=== PATIENT | male | born 1985 | race African-American/Black ===

== ENCOUNTER 2018-08-08 05:26 | Emergency (ER) | payer MEDICAID ==
[~2018-08-08] VITALS: Ht 172.7 cm; Wt 86.4 kg
[2018-08-08 06:23] VITALS: BP 143/83
[2018-08-08] MEDS ORDERED: LIDOcaine 1.5% w/epinephrine 1:200,000 5ml ampul IJ ONE (06:35)
[2018-08-08] MEDS ORDERED: LIDOcaine 1% w/EPI 1:100,000 30ml vial (MDV) IJ ONE (06:40)
== END 2018-08-08 08:22 | disposition home or self-care (01) ==
LOC: ER 05:27
DX: S01.511A Laceration without foreign body of lip, initial encounter (principal); F12.90 Cannabis use, unspecified, uncomplicated; F15.90 Other stimulant use, unspecified, uncomplicated; F17.200 Nicotine dependence, unspecified, uncomplicated; Z59.0 Homelessness; Y04.0XXA Assault by unarmed brawl or fight, initial encounter; Y93.89 Activity, other specified; Y92.89 Other specified places as the place of occurrence of the external cause; Y99.9 Unspecified external cause status
CPT/HCPCS: 12011; 99283; J3490

== ENCOUNTER 2019-08-20 10:09 | Emergency (ER) | payer MEDICAID ==
[~2019-08-20] VITALS: Ht 172.7 cm; Wt 89.5 kg
[~2019-08-20 10:09] MED LIST: NEOM1OIN8 TOP
--- NOTE | 2019-08-20 10:50 | NUR ---
PT REPORTS USING [facility] LAST NIGHT
--- NOTE | 2019-08-20 10:52 | NUR ---
PT ITCHING AT THE BACK OF HIS NECK, REFUSING TO STOP.
[2019-08-20] MEDS ORDERED: LORazepam 1 MG tablet PO ONE (11:10)
[2019-08-20] MEDS ORDERED: mupirocin 2% ointment 22GM TP ONE (12:15)
[2019-08-20 12:33] VITALS: BP 123/85
== END 2019-08-20 12:35 | disposition home or self-care (01) ==
LOC: ER 10:10
DX: F22 Delusional disorders (principal); B88.8 Other specified infestations; F12.90 Cannabis use, unspecified, uncomplicated; F15.90 Other stimulant use, unspecified, uncomplicated; Z59.0 Homelessness
CPT/HCPCS: 99283

== ENCOUNTER 2019-10-04 12:31 | Emergency (ER) | payer MEDICAID ==
[~2019-10-04] VITALS: Ht 177.8 cm; Wt 70.0 kg
[2019-10-04 12:43] VITALS: BP 150/92
[2019-10-04] MEDS ORDERED: PERM60CR19 TP (13:56)
== END 2019-10-04 14:20 | disposition home or self-care (01) ==
LOC: ER 12:31
DX: B86 Scabies (principal); F15.10 Other stimulant abuse, uncomplicated; F12.90 Cannabis use, unspecified, uncomplicated; Z59.0 Homelessness
CPT/HCPCS: 99283

== ENCOUNTER 2019-10-09 05:54 | Emergency (ER) | payer MEDICAID ==
[~2019-10-09] VITALS: Ht 172.7 cm; Wt 75.0 kg
[~2019-10-09 05:54] MED LIST changes: +PERM60CR19 TP
[2019-10-09 06:00] VITALS: BP 170/119
[2019-10-09] MEDS ORDERED: PERM60CR19 TP (06:27)
[2019-10-09] MEDS ORDERED: CEPH500C5 PO (06:27)
== END 2019-10-09 06:37 | disposition home or self-care (01) ==
LOC: ER 05:55
DX: L53.8 Other specified erythematous conditions (principal); B86 Scabies; F15.90 Other stimulant use, unspecified, uncomplicated; Z59.0 Homelessness; F12.90 Cannabis use, unspecified, uncomplicated
CPT/HCPCS: 99283

== ENCOUNTER 2019-10-10 07:52 | Emergency (ER) | payer MEDICAID ==
[~2019-10-10] VITALS: Ht 172.7 cm; Wt 80.0 kg
[~2019-10-10 07:52] MED LIST changes: +CEPH500C5 PO
[2019-10-10 07:58] VITALS: BP 106/45
[2019-10-10] MEDS ORDERED: Permethrin Cream 60gm TP ONE (08:05)
== END 2019-10-10 08:22 | disposition home or self-care (01) ==
LOC: ER 07:52
DX: B86 Scabies (principal); F10.99 Alcohol use, unspecified with unspecified alcohol-induced disorder; F12.90 Cannabis use, unspecified, uncomplicated; F15.90 Other stimulant use, unspecified, uncomplicated; Z79.899 Other long term (current) drug therapy; Z59.0 Homelessness; Y90.9 Presence of alcohol in blood, level not specified
CPT/HCPCS: 99282

== ENCOUNTER 2019-11-25 05:36 | Emergency (ER) | payer MEDICAID ==
[~2019-11-25] VITALS: Ht 177.8 cm; Wt 100.0 kg
[~2019-11-25 05:36] MED LIST changes: -CEPH500C5 PO; -PERM60CR19 TP
[2019-11-25 06:10] VITALS: BP 148/95
== END 2019-11-25 06:12 | disposition home or self-care (01) ==
LOC: ER 05:37
DX: Z77.098 Contact with and (suspected) exposure to other hazardous, chiefly nonmedicinal, chemicals (principal); Z79.899 Other long term (current) drug therapy; F12.90 Cannabis use, unspecified, uncomplicated; F15.90 Other stimulant use, unspecified, uncomplicated; Z59.0 Homelessness; H57.11 Ocular pain, right eye
CPT/HCPCS: 99281